=== PATIENT | female | born 2000 | race African-American/Black ===

== ENCOUNTER 2021-07-24 21:17 | Emergency (ER) | payer BC ==
[~2021-07-24] VITALS: Ht 160 cm; Wt 68.2 kg
[2021-07-24 23:34] LABS: BASO % 0.3 % (0.0-2.0); EOS # 0.3 K/mm3 (0.0-0.7); EOS % 3.5 % (0-4.0); GRAN # 3.2 K/mm3 (1.4-6.5); GRAN % 44.9 % (42.2-75.2); HEMATOCRIT 38.6 % (37.0-47.0); HEMOGLOBIN 13.4 g/dl (12.5-16.0); LYMPH % 42.4 % (20.0-51.0); MEAN CELL VOLUME 88 fl (80.0-100.0); MEAN CORPUSCULAR HEMOGLOBIN 31 pg (27.0-31.0); MEAN CORPUSCULAR HGB CONC 35 g/dl (33.0-37.0); MEAN PLATELET VOLUME 10.2 fl (7.4-10.4); MONO # 0.6 K/mm3 (0.1-0.6); MONO % 8.8 % (1.7-9.3); PLATELET COUNT 210 K/mm3 (130-400); RED BLOOD COUNT 4.37 M/mm3 (4.10-5.30); REDCELL DISTRIBUTION WIDTH-CV 11.9 % (11.5-14.5)
[2021-07-24 23:39] LABS: COLLECTION METHOD CLEAN CATCH
[2021-07-24 23:45] LABS: PH 6 (5-8); URINE APPEARANCE Hazy; URINE BACTERIA None Seen /hpf; URINE BILIRUBIN Negative (NEGATIVE); URINE BLOOD Negative (NEGATIVE); URINE COLOR Yellow; URINE GLUCOSE Negative (NEGATIVE); URINE KETONE Negative (NEGATIVE); URINE LEUKOCYTE ESTERASE Trace (NEGATIVE); URINE NITRATE Negative (NEGATIVE); URINE PROTEIN(semi-quant) Negative (NEGATIVE); URINE RBC 0-2 /hpf; URINE UROBILINOGEN Negative (NEGATIVE)
[2021-07-24 23:53] LABS: ALANINE AMINOTRANSFERASE 72 U/L (0-55); ALBUMIN 3.8 gm/dL (3.5-5.0); ALKALINE PHOSPHATASE 58 U/L (40-150); ANION GAP 9 mmol/L (7-16); AST,SGOT 49 U/L (5-34); BILIRUBIN,TOTAL 0.4 mg/dL (0.2-1.2); BLOOD UREA NITROGEN 12 mg/dL (7-19); C-REACTIVE PROTEIN 0.22 mg/dL (0.00-0.50); CARBON DIOXIDE 23 mmol/L (22-29); CHLORIDE 106 mmol/L (98-107); CREATININE, serum 1.16 mg/dL (0.57-1.11); GLUCOSE 103 mg/dL (70-99); LIPASE 39 U/L (8-78); SODIUM 138 mmol/L (136-145); TOTAL PROTEIN 6.6 gm/dL (6.2-8.1)
[2021-07-24 23:59] LABS: TROPONIN-I < 0.010 ng/mL (0.00-0.033)
[2021-07-25] MEDS ORDERED: NAPROSYN500 MG PO (00:44)
[2021-07-25 01:29] VITALS: BP 110/61; PULSE 65
== END 2021-07-25 01:29 | disposition home or self-care (01) ==
LOC: COL.ER 21:17
PROVIDERS: Nurse Practitioner Primary Care
DX: M75.21 Bicipital tendinitis, right shoulder (principal)
CPT/HCPCS: J1885